=== PATIENT | female | born 1945 | race Caucasian/White ===

== ENCOUNTER 2016-10-08 14:10 | Emergency (ER) | payer OTHER, MEDICAID ==
--- NOTE | 2016-10-08 13:58 | EDPHY ---
H & P Constitutional: Initial Vital Signs Temperature (C) 36.6 C 10/08/16 14:20 Heart Rate 84 10/08/16 14:20 Respiratory Rate 18 10/08/16 14:20 Blood Pressure 150/94 H 10/08/16 14:20 O2 Sat (%) 95 10/08/16 14:20 O2 Delivery Mode Room Air Allergies/Adverse Reactions: gabapentin [From Neurontin] Allergy (Intermediate, Verified 03/11/16 18:12) Anxiety Home Medications: Medication Instructions Recorded Calcium Carb W/Vit D [Calcium Carb 500 mg PO BID 03/02/16 W/Vit D 500/200 (*)] Acetaminophen/ASA/Caffeine 2 each PO Q6 PRN #0 tab 03/08/16 [Excedrin Tablet (*)] Famotidine [Pepcid 20 MG (*)] 20 mg PO BID #0 tab 03/08/16 morphINE SR [MS Contin/Oramorph SR 30 mg PO BID 03/11/16 30 mg (*)] Acet/Caffeine/Buta Fioricet 1 each PO Q6HRS PRN #0 tab 03/20/16 [Fioricet (*)] Enoxaparin [Lovenox 40 MG (*)] 40 mg SC DAILY #0 syr 03/20/16 morphINE IR [morphINE IR 30 mg (*)] 30 mg PO Q8 PRN #0 tab 03/20/16 Magnesium Hydroxide [Milk of 30 ml PO DAILY PRN 04/05/16 Magnesia (*)] Methocarbamol [Robaxin 750 mg (*)] 750 mg PO TID 04/05/16 Ondansetron Odt [Zofran Odt 4 mg 4 mg PO Q4 PRN 04/05/16 (*)] Polyethylene Glycol 3350 [Miralax 17 gm PO DAILY 04/05/16 17 gm (*)] Sennosides/Docusate Sodium 2 tab PO BID 04/05/16 [Senna-Docusate Sodium Tablet] Alteplase [Cathflo Activase 2 mg 2 mg IVP PRN PRN #0 vial 04/14/16 (*)] Vancomycin [Vancomycin (*)] 750 mg IV Q12H #0 vial 04/14/16 oxyCODONE IR [Oxycodone Ir (*)] 5 - 10 mg PO Q3 PRN #0 tab 04/14/16 Medical Decision Making ED Course/Re-evaluation: CHIEF COMPLAINT: Transfer from [place] HISTORY OF PRESENT ILLNESS: The patient is a 71 y/o female, with a history of anxiety and chronic pain, arriving via EMS from [place] for evaluation of foreign bodies in her right foot. Per EMS and transfer paperwork, patient had an x-ray of her right foot that showed 3 pieces of needles in 3 different locations along her plantar foot. She apparently has a history of foreign bodies in this foot without definitive cause. It's unclear why [place] required transfer to the ED rather than her PCP as she denies any associated symptoms with these foreign bodies. The patient is also unsure why she was transferred to the ED. She tells me, "it's happened before. It worked it's way out 2-3 months later." She is unable to tell me how she continues to get needles in her foot, but does tell me "it was a clean, brand new needle." She denies pain, redness, difficulty bearing weight, fever, warmth, or any other symptoms. REVIEW OF SYSTEMS: A 10 point review of systems was performed and is negative with the exception of the elements mentioned in the history of present illness. PHYSICAL EXAM: HR, BP, O2 Sat, RR. Temp noted General Appearance: Alert, well hydrated, appropriate, and non-toxic appearing. Musculoskeletal: Normal active ROM of all extremities, atraumatic. Neurological: Alert, appropriate, and interactive. Skin: No rashes, good turgor, no nodules on palpation. Past medical history: Anxiety, chronic pain, chronic migraine, GERD, dysphagia, generalized weakness, Past surgical history: left above the knee amputation Family history: noncontributory Social history: Lives at [place] Medical records obtained from [place] transfer paperwork. DIFFERENTIAL DIAGNOSIS: The differential diagnosis for the patient's transfer included but was not limited to foreign bodies in foot, psychiatric illness, self-inflicted injury. MEDICAL DECISION MAKING: This is a 71 y/o female with a history of chronic pain, anxiety, and left leg amputation presenting to the ED at [place]'s request without any complaints. [place] paperwork states patient was sent to the ED for evaluation of right foot foreign bodies. The patient tells me she's had previous episodes of needles appearing in her foot and she is not sure how they get there. She is unconcerned with treating her current foreign bodies. Her exam is unremarkable other than her left leg amputation. There is no evidence of foot infection or protruding foreign body. We will not re-image as she had an x-ray last night. She is requesting that we do no interventions here. I suspect these needles are self-inflicted and it sounds like she has a long history of doing this. She will be discharged with referral to PCP and podiatry for follow up as needed. Return precautions given. She is comfortable with this plan. Departure - Departure Disposition: Home, Routine, Self-Care Clinical Impression: Foreign body in foot, right Qualifiers: Encounter type: initial encounter Qualified Code(s): S90.851A - Superficial foreign body, right foot, initial encounter Instructions: Soft Tissue Foreign Body (ED) Additional Instructions: Your foot shows no signs of infection. Follow up with your primary care provider as needed. You've also been referred to podiatry if needed. Referrals: Patient,NotPresent [Primary Care Provider] - As per Instructions Pascual Aceves DPM [Doctor of Podiatric Medicine] - As per Instructions Report Scribed for: Alfonso Edwards Report Scribed by: Tamanna Pino Date of Report: 10/08/16 Time of Report: 14:20
[2016-10-08 14:36] VITALS: BP 150/94; PULSE 84; RESP 18; TEMP 97.9; O2SAT 95
== END 2016-10-08 14:41 | disposition home or self-care (01) ==
LOC: EDUNIT#
DX: S90.851A Superficial foreign body, right foot, initial encounter (principal); W45.8XXA Other foreign body or object entering through skin, initial encounter; Y93.89 Activity, other specified

== ENCOUNTER → 2016-11-09 | Outpatient (CLI) | payer OTHER, MEDICAID | LOC: FIMAGING 13:07 | DX: Z12.31 Encounter for screening mammogram for malignant neoplasm of breast (principal); M54.16 Radiculopathy, lumbar region; N83.201 Unspecified ovarian cyst, right side; M85.80 Other specified disorders of bone density and structure, unspecified site | CPT/HCPCS: G0202 ==

== ENCOUNTER → 2016-11-30 | Outpatient (CLI) | payer OTHER, MEDICAID | LOC: FIMAGING 12:36 | DX: M54.16 Radiculopathy, lumbar region (principal); M48.06 Spinal stenosis, lumbar region; M51.36 Other intervertebral disc degeneration, lumbar region; M51.26 Other intervertebral disc displacement, lumbar region ==

== ENCOUNTER → 2016-12-17 | Outpatient (CLI) | payer OTHER, MEDICAID | LOC: FIMAGING 12:31 | PROVIDERS: ATTEND Obstetrics & Gynecology | DX: D25.9 Leiomyoma of uterus, unspecified (principal); N83.201 Unspecified ovarian cyst, right side; Z78.0 Asymptomatic menopausal state ==

== ENCOUNTER → 2017-03-03 | Outpatient (CLI) | payer OTHER, MEDICAID | LOC: FIMAGING 13:31 | DX: Z01.818 Encounter for other preprocedural examination (principal) ==